=== PATIENT | male | born 1960 | race Caucasian/White ===

== ENCOUNTER → 2018-01-24 10:08 | Outpatient (CLI) | payer BC, SELFPAY ==
[2018-01-24 11:19] LABS: AST(SGOT) 36 U/L (15-37); Alanine Aminotransfer ALT/SGPT 72 U/L (16-61); Albumin, Serum 4.1 g/dL (3.2-5.0); Alkaline Phosphatase 114 U/L (45-117); Bilirubin, Direct 0.09 mg/dL (0.00-0.30); Cholesterol 82 mg/dL (200); Globulin 4.1 g/dL (2.2-4.2); High Density Lipoprotein 31 mg/dL; Protein, Total 8.2 g/dL (6.4-8.2); Triglycerides 428 mg/dL
== END ==
PROVIDERS: Family Provider Family Medicine; PCP Family Medicine; Visit Provider Internal Medicine Cardiovascular Disease
DX: E78.5 Hyperlipidemia, unspecified (principal)
CPT/HCPCS: 36415; 80061; 80076